=== PATIENT | male | born 1945 | race Caucasian/White ===

== ENCOUNTER → 2017-07-08 13:53 | Outpatient (CLI) | payer MEDICARE, BC, SELFPAY ==
--- NOTE | 2017-07-08 13:54 | CDU_ITS ---
Reason For Study: Carotid stenosis Rt. Velocities/BP Lt. Velocities/BP Prox CCA 55.8/13.0 cm/sec. Prox CCA 70.9/18.2 cm/sec. Mid CCA 51.9/11.8 cm/sec. Mid CCA 68.6/14.1 cm/sec. Dist CCA 36.1/11.8 cm/sec. Dist CCA 64.5/16.4 cm/sec. Prox ICA 176.0/63.8 cm/sec. Prox ICA 42.0/16.5 cm/sec. Mid ICA 141.0/48.1 cm/sec. Mid ICA 51.3/15.5 cm/sec. Dist ICA 131.0/30.4 cm/sec. Dist ICA 51.8/16.7 cm/sec. Rt. ICA/CCA = 3.4. Lt. ICA/CCA = .76. Prox ECA 97.3/10.6 cm/sec. Prox ECA 69.8/10.6 cm/sec. Rt. Vert. 58.0/17.6 cm/sec. Lt. Vert. 65.1/27.0 cm/sec. Right Extracranial There is heterogeneous, irregular atherosclerotic plaque noted in the right common carotid artery. There is heterogeneous, irregular atherosclerotic plaque noted in the right internal carotid artery. There is heterogeneous, irregular atherosclerotic plaque noted in the right external carotid artery. Antegrade flow is noted in the right vertebral artery. Left Extracranial There is heterogeneous, irregular atherosclerotic plaque noted in the left common carotid artery. There is heterogeneous, irregular atherosclerotic plaque noted in the left internal carotid artery. There is heterogeneous, irregular atherosclerotic plaque noted in the left external carotid artery. Antegrade flow is noted in the left vertebral artery. Procedure Carotid Duplex 20337. Exam performed in department. Interpretation Summary Moderate (50-69%) stenosis right extracranial internal carotid. Mild (<50%) stenosis left extracranial internal carotid. Flow within the vertebral arteries is antegrade bilaterally. Ordering Physician: Giuseppe Montague Referring Physician: Giuseppe Montague Performed By: Basilia Raygoza RVT
== END ==
PROVIDERS: Family Provider Family Medicine; PCP Family Medicine; Visit Provider Internal Medicine Cardiovascular Disease
DX: I65.23 Occlusion and stenosis of bilateral carotid arteries (principal)
CPT/HCPCS: 93880

== ENCOUNTER → 2018-02-19 07:52 | Outpatient (CLI) | payer MEDICARE, BC, SELFPAY ==
--- NOTE | 2018-02-20 06:29 | PFTCOMP_ITS ---
COMPLETE PULMONARY FUNCTION TEST INTERPRETATION Brief HPI: Patient is a 73 year old male, currently under the care of myself, who presents to [facility] [place] for complete pulmonary function tests secondary to diagnosis of dyspnea. Respiratory therapist reports good effort and reproducible results. Interpretation: Forced expiration spirometry shows no large airways obstructive ventilatory defect with an FEV1 of 86% predicted. There is no significant bronchodilator response by strict ATS criteria. Spirograms are of good quality and plateau normally. The respiratory flow volume loop shows decreased expiratory flow rates at high lung volumes consistent with small airways obstruction. Lung volumes by body plethysmography show a normal total lung capacity at 5.99 L, 100% predicted. All other lung volumes are within normal limits. Diffusion capacity by carbon monoxide is decreased at 61% predicted. The airway resistance is normal. No previous pulmonary function tests were available for review. Impression: Isolated reduction in diffusion capacity consistent with a possible pulmonary vascular disorder.
== END ==
PROVIDERS: Family Provider Family Medicine; PCP Family Medicine; Referring Provider Internal Medicine Critical Care Medicine; Visit Provider Internal Medicine Critical Care Medicine
DX: G47.34 Idiopathic sleep related nonobstructive alveolar hypoventilation (principal)
CPT/HCPCS: 94060; 94726; 94729; 94762

== ENCOUNTER → 2018-06-05 12:59 | Outpatient (CLI) | payer MEDICARE, BC, SELFPAY ==
[2018-05-08 10:06] VITALS: BMI 34.4
== END ==
PROVIDERS: Family Provider Family Medicine; PCP Family Medicine; Referring Provider Internal Medicine Critical Care Medicine; Visit Provider Internal Medicine Critical Care Medicine
DX: G47.33 Obstructive sleep apnea (adult) (pediatric) (principal)
CPT/HCPCS: 98960; G0463

== ENCOUNTER → 2018-11-02 10:46 | Outpatient (CLI) | payer MEDICARE, BC, SELFPAY ==
[2018-02-09 11:09] VITALS: BMI 35.2
[2018-03-02 11:35] VITALS: PULSE 100; PULSE 103; PULSE 106; PULSE 107; PULSE 71; PULSE 79; PULSE 97; O2SAT 89; O2SAT 92; O2SAT 94; O2SAT 97
--- NOTE | 2018-03-02 16:07 | PCM.PSN.6M ---
PSN 6 Minute Walk Test - 6 Minute Walk Test 6 Minute Walk Test: 6 Minute Walk Test PSN:6-Minute Walk Test Start: 03/02/18 11:34 Freq: Status: Active Protocol: RESP.6MINW Document 03/02/18 11:35 LAYTON (Rec: 03/02/18 11:38 LAYTON [id number]) 6 Minute Walk Test Date Performed 03/02/18 Time Performed 11:00 Height 5 ft 8 in Weight: 104.326 kg Weight in Pounds 230.[address]: Zheng Rodriguez Assistive device used: None Pre-test Oxygen Delivery Method Room Air Pulse Ox (%) 94 Pulse Rate (60-100 beats/min) 79 Dyspnea Kapil Scale (0-10) 0 Exertion Kapil Scale (6-20) 6 1st minute Oxygen Delivery Method Room Air Pulse Ox (%) 92 Pulse Rate (60-100 beats/min) 97 2nd minute Oxygen Delivery Method Room Air Pulse Ox (%) 89 Pulse Rate (60-100 beats/min) 100 3rd minute Oxygen Delivery Method Room Air Pulse Ox (%) 89 Pulse Rate (60-100 beats/min) 103 H 4th minute Oxygen Delivery Method Room Air Pulse Ox (%) 89 Pulse Rate (60-100 beats/min) 106 H 5th minute Oxygen Delivery Method Room Air Pulse Ox (%) 89 Pulse Rate (60-100 beats/min) 106 H 6th minute Oxygen Delivery Method Room Air Pulse Ox (%) 89 Pulse Rate (60-100 beats/min) 107 H Dyspnea Kapil Scale (0-10) 2 Exertion Kapil Scale (6-20) 12 Post-test Oxygen Delivery Method Room Air Pulse Ox (%) 97 Pulse Rate (60-100 beats/min) 71 Full Laps Walked 21 Partial Lap, Number of Tiles Walked 12 Total Distance Walked (ft) 1251 - Interpretation Interpretation: The patient was able to ambulate 1251 feet over the course of 6 minutes on room air with no assistive devices or breaks. The patient did have significant desaturation as low as 89% with reflexive tachycardia as high as 107 bpm. These findings are consistent with a respiratory limitation to exercise tolerance. - Recommendations Recommendations: No supplemental oxygen is indicated at this time. However, patient will need to be followed closely given level of desaturation.
[2018-08-06 14:25] VITALS: BMI 34.7
== END ==
PROVIDERS: Family Provider Family Medicine; PCP Family Medicine; Referring Provider Internal Medicine Critical Care Medicine; Visit Provider Internal Medicine Critical Care Medicine
DX: R06.09 Other forms of dyspnea (principal)
CPT/HCPCS: 94618

== ENCOUNTER → 2018-11-02 12:29 | Outpatient (CLI) | payer MEDICARE, BC, SELFPAY ==
[2018-08-06 14:25] VITALS: BMI 34.7
[2018-11-02 12:45] VITALS: PULSE 60; PULSE 74; PULSE 80; PULSE 82; PULSE 83; PULSE 88; PULSE 97; PULSE 99; O2SAT 89; O2SAT 90; O2SAT 92; O2SAT 95; O2SAT 96
--- NOTE | 2018-11-04 07:50 | PCM.PSN.6M ---
PSN 6 Minute Walk Test - 6 Minute Walk Test 6 Minute Walk Test: 6 Minute Walk Test PSN:6-Minute Walk Test Start: 11/02/18 12:45 Freq: Status: Active Protocol: RESP.6MINW Document 11/02/18 12:45 SMB (Rec: 11/02/18 12:49 SMB [id number]) 6 Minute Walk Test Date Performed 11/02/18 Time Performed 10:53 Height 5 ft 8 in Weight: 225 lb Weight in Pounds 225.[address]: Zheng Rodriguez Assistive device used: None Pre-test Oxygen Delivery Method Room Air Pulse Ox (%) 95 Pulse Rate (60-100 beats/min) 80 Dyspnea Kapil Scale (0-10) 0 Exertion Kapil Scale (6-20) 11 1st minute Oxygen Delivery Method Room Air Pulse Ox (%) 96 Pulse Rate (60-100 beats/min) 83 2nd minute Oxygen Delivery Method Room Air Pulse Ox (%) 92 Pulse Rate (60-100 beats/min) 82 3rd minute Oxygen Delivery Method Room Air Pulse Ox (%) 90 Pulse Rate (60-100 beats/min) 88 4th minute Oxygen Delivery Method Room Air Pulse Ox (%) 90 Pulse Rate (60-100 beats/min) 97 5th minute Oxygen Delivery Method Room Air Pulse Ox (%) 89 Pulse Rate (60-100 beats/min) 99 6th minute Oxygen Delivery Method Room Air Pulse Ox (%) 89 Pulse Rate (60-100 beats/min) 74 Post-test Oxygen Delivery Method Room Air Pulse Ox (%) 95 Pulse Rate (60-100 beats/min) 60 Dyspnea Kapil Scale (0-10) 1 Exertion Kapil Scale (6-20) 13 Full Laps Walked 22 Partial Lap, Number of Tiles Walked 12 Total Distance Walked (ft) 1310 - Interpretation Interpretation: The patient ambulated 1310 feet over the course of 6 minutes beginning on room air without assistive devices or breaks. Pretesting oxygen saturation was noted to be 95% on room air. With ambulation, the valerio oxygen saturation was 89%. This represents a significant exertional oxygen desaturation, consistent with pulmonary limitation to exercise tolerance. - Recommendations Recommendations: There is no indication for the use of supplemental oxygen at this time. However, close interval follow-up is recommended, given the degree of oxygen desaturation noted during this study.
== END ==
PROVIDERS: Family Provider Family Medicine; PCP Family Medicine; Referring Provider Internal Medicine Critical Care Medicine; Visit Provider Internal Medicine Critical Care Medicine
DX: I27.20 Pulmonary hypertension, unspecified (principal)
CPT/HCPCS: 94618

== ENCOUNTER → 2018-11-03 09:45 | Outpatient (CLI) | payer MEDICARE, BC, SELFPAY ==
[2018-05-08 10:06] VITALS: BMI 34.4
[2018-08-06 14:25] VITALS: BMI 34.7
--- NOTE | 2018-11-04 08:00 | PFT ---
INTRODUCTION: The patient is a 73-year-old male that presents for pulmonary function studies secondary to a diagnosis of COPD. Respiratory therapy reports good patient effort. Bronchodilators were used during testing. INTERPRETATION: Forced expiration spirometry demonstrates no evidence of a large airways obstructive ventilatory defect. There was no significant response to aerosolized bronchodilators, based upon strict ATS criteria. Spirograms are of good quality and plateau normally. Body plethysmography was performed and reveals a decrease TLC to 4.51 L, 75% of predicted, indicative of a mild restrictive ventilatory impairment. The remainder of the lung volumes are symmetrically reduced. Diffusing capacity by single breath CO is moderately reduced at 59% of predicted. When compared to previous pulmonary function studies from February 2018 there has been a 25% decrease in TLC. IMPRESSION: Mild restrictive ventilatory impairment with disproportionate moderate reduction in diffusing capacity. There has been a 25% reduction in total lung capacity when compared to previous pulmonary function studies dated February 2018.
== END ==
PROVIDERS: Family Provider Family Medicine; PCP Family Medicine; Referring Provider Internal Medicine Critical Care Medicine; Visit Provider Internal Medicine Critical Care Medicine
DX: I27.20 Pulmonary hypertension, unspecified (principal); G47.33 Obstructive sleep apnea (adult) (pediatric)
CPT/HCPCS: 94060; 94726; 94729

== ENCOUNTER → 2018-12-22 12:50 | Outpatient (CLI) | payer MEDICARE, BC, SELFPAY ==
[2018-11-16 10:39] VITALS: BMI 34.7
--- NOTE | 2018-12-22 12:51 | ECHOD_ITS ---
Reason For Study: VALVE REPLACEMENT EVAL Left Ventricle Mild concentric left ventricular hypertrophy. The estimated ejection fraction is 65 %. Septal motion consistent with IVCD. No regional wall motion abnormalities noted. Right Ventricle Moderately dilated right ventricle. Normal systolic function. Atria The left atrium is moderately enlarged. The right atrium is mildly enlarged. Normal atrial septum. Mitral Valve The mitral valve is structurally normal. No prolapse or stenosis seen. Trivial mitral valve insufficiency. Tricuspid Valve Normal tricuspid valve. Unable to estimate RV systolic pressure due to insufficient tricuspid regurgitant envelope. Aortic Valve Stable appearing bioprosthetic aortic valve apparatus. Pulmonic Valve Normal pulmonic valve. Mild (1+) pulmonic valve insufficiency. Great Vessels Calcified aortic root. Normal arch. Normal inferior vena cava. Inferior vena cava collapse with sniff. Pericardium/Pleural No pericardial effusion. MMode/2D Measurements & Calculations LVIDd: 5.5 cm IVSd: 1.3 cm LVOT diam: 2.1 cm LVIDs: 3.6 cm LVPWd: 1.3 cm LVOT area: 3.5 cm2 RVDd: 4.3 cm FS: 34.7 % Ao root diam: 3.4 cm LAV(MOD-bp): 88.3 ml LA A4 area: 24.7 cm2 LAV(MOD-bp) Indexed: 40.9 ml/m2 LAV(MOD-sp2): 89.8 ml LAV(MOD-sp4): 86.4 ml LA dimension(2D): 4.0 cm RA A4 area: 20.6 cm2 Time Measurements MV dec time: 0.15 sec Doppler Measurements & Calculations MV E max clyde: 73.3 cm/sec Lat Peak E' Clyde: 5.2 cm/sec Med Peak E' Clyde: 5.2 cm/sec MV A max clyde: 82.7 cm/sec E/E' lat: 14.0 E/E' med: 14.2 MV E/A: 0.89 Ao V2 max: 129.2 cm/sec LV V1 max: 95.5 cm/sec MR max clyde: 502.8 cm/sec Ao max P.1 mmHg LV V1 max P.6 mmHg MR max P.1 mmHg Ao V2 mean: 99.0 cm/sec LV V1 mean P.1 mmHg MR mean clyde: 386.2 cm/sec Ao mean P.4 mmHg LV V1 mean: 69.3 cm/sec MR mean P.2 mmHg Ao V2 VTI: 25.7 cm LV V1 VTI: 20.7 cm MR VTI: 173.0 cm LUZ(I,D): 2.8 cm2 LUZ(V,D): 2.6 cm2 SV(LVOT): 73.1 ml PA V2 max: 108.5 cm/sec Interpretation Summary The estimated ejection fraction is 65 %. Moderately dilated right ventricle. The left atrium is moderately enlarged. The right atrium is mildly enlarged. Trivial mitral valve insufficiency. Unable to estimate RV systolic pressure due to insufficient tricuspid regurgitant envelope. Stable appearing bioprosthetic aortic valve apparatus. Compared to echo report dated 06/06/2014, LV function has remained the same. Aortic gradient has now normalized s/p AVR. Ordering Physician: Giuseppe Montague Referring Physician: Lenore Feng Performed By: Cristina Brewer RDCS, RVT
== END ==
PROVIDERS: Family Provider Family Medicine; PCP Family Medicine; Referring Provider Internal Medicine Cardiovascular Disease; Visit Provider Internal Medicine Cardiovascular Disease
DX: I27.20 Pulmonary hypertension, unspecified (principal)
CPT/HCPCS: 93306

== ENCOUNTER → 2019-05-11 13:16 | Outpatient (CLI) | payer MEDICARE, BC, SELFPAY ==
[2018-11-16 10:39] VITALS: BMI 34.7
[2019-02-25 10:39] VITALS: BMI 34.8
--- NOTE | 2019-05-11 14:53 | PFTCOMP_ITS ---
COMPLETE PULMONARY FUNCTION TEST INTERPRETATION Brief HPI: Patient is a 74 year old male, currently under the care of Roselia Sheffield, who presents to [facility] for complete pulmonary function tests secondary to diagnosis of COPD. Respiratory therapist reports good effort and reproducible results. Interpretation: Forced expiration spirometry shows no large airways obstructive ventilatory defect with an FEV1 of 76% predicted. There is no significant bronchodilator response by strict ATS criteria. Spirograms are of good quality and plateau slowly, indicating slowly emptying areas of the lungs. The respiratory flow volume loop shows decreased expiratory flow rates at high lung volumes consistent with small airways obstruction. Lung volumes by body plethysmography show a decreased total lung capacity at 4.97 L, 83% predicted. All other lung volumes are reduced symmetrically. Diffusion capacity by carbon monoxide is decreased at 54% predicted. The airway resistance is elevated. Compared to previous pulmonary function tests from 11/03/2018, there has been no significant change. Impression: Mild restrictive ventilatory defect with a reduction in diffusion capacity that is out of proportion
== END ==
PROVIDERS: Family Provider Family Medicine; PCP Family Medicine; Referring Provider Internal Medicine Critical Care Medicine; Visit Provider Internal Medicine Critical Care Medicine
DX: I27.20 Pulmonary hypertension, unspecified (principal)
CPT/HCPCS: 94060; 94726; 94729